=== PATIENT | female | born 1950 | race American Indian/Alaskan Native ===

== ENCOUNTER 2020-07-09 11:22 | Outpatient (CLI) | payer MEDICARE ==
--- NOTE | 2020-07-09 12:18 | XRay Report ---
CHEST 2 VIEWS INDICATION: DYSPNEA ON EFFORT. COMPARISON: None FINDINGS: Support devices: None. Heart: Within normal limits. Lungs/pleura: No acute air space or interstitial disease. No pneumothorax. Additional findings: None. IMPRESSION: No acute findings. Signer Name: Rodolfo Will Jr, MD Signed: 07/09/2020 12:14 PM Workstation Name: [id number]
== END 2020-07-09 11:23 | disposition home or self-care (01) ==
LOC: SPVIMAG 11:22
PROVIDERS: ATTEND Internal Medicine
DX: R06.00 Dyspnea, unspecified (principal)
CPT/HCPCS: 71046

== ENCOUNTER 2020-07-14 14:31 | Outpatient (CLI) | payer MEDICARE ==
[2020-07-14 15:29] LABS: Blood Urea Nitrogen 9 mg/dL (7-17)
== END 2020-07-14 14:32 | disposition home or self-care (01) ==
LOC: CT 14:31
PROVIDERS: ATTEND Internal Medicine Cardiovascular Disease
DX: J98.11 Atelectasis (principal); N28.1 Cyst of kidney, acquired; M47.814 Spondylosis without myelopathy or radiculopathy, thoracic region; Z90.49 Acquired absence of other specified parts of digestive tract
CPT/HCPCS: 36415; 71275; 82565; 84520; Q9967